=== PATIENT | female | born 1965 | race American Indian/Alaskan Native ===

== ENCOUNTER 2018-05-09 12:34 | Emergency (ER) | payer MEDICAID ==
[2018-05-09 13:00] VITALS: BP 104/66
[2018-05-09] MEDS ORDERED: Oxymetazoline 0.05% Nasal Spray 15 ML Bottle NAS ONE (13:04)
[2018-05-09] MEDS ORDERED: Sodium Chloride 0.9% 10 ML Syringe FLUSH PRN (13:05)
--- NOTE | 2018-05-09 13:09 | EDM.PDOC ---
ED HPI GENERAL MEDICAL PROBLEM - General Chief Complaint: Respiratory Problem Stated Complaint: [facility] Time Seen by Provider: 05/09/18 12:55 Source of Information: Reports: Patient History Limitations: Reports: No Limitations - History of Present Illness INITIAL COMMENTS - FREE TEXT/NARRATIVE: Patient is a 53-year-old female presents ED complaining of shortness of breath, sinus congestion, productive cough. Patient states with awakening this morning she had increased shortness of breath and couldn't catch her breath. She took 2 puffs her of her albuterol inhaler with no significant relief. States she panicked a little bit although the shortness of breath decreased. She called the ambulance and during transport received Versed 2 mg and also two neb treatments. Upon examination patient states the shortness of breath is improving. She's feeling tired. Cough persists. Cough has been present for almost 2 weeks. She has sinus congestion with faint postnasal drip. Their has been no documented fever, recent sick exposure, chest pain, sore throat, hemoptysis, abdominal pain, dysuria, increased weight, or increased edema/ tenderness to the lower extremities. Treatments SALT GRINDER: Reports: Breathing Treatments, Other (see below) Other Treatments SALT GRINDER: versed - Related Data Allergies Allergy/AdvReac Type Severity Reaction Status Date / Time No Known Allergies Allergy Verified 01/08/15 14:14 Home Meds: Home Meds Novalog 24 units BID 05/20/14 [History] metFORMIN [Glucophage XR] 500 mg PO DAILY 05/20/14 [History] atorvaSTATin Calcium [Lipitor] 20 mg PO DAILY 05/09/18 [History] Past Medical History Cardiovascular History: Reports: Hypertension Endocrine/Metabolic History: Reports: Diabetes, Type I Social & Family History - Tobacco Use Smoking Status *Q: Current Every Day Smoker Years of Tobacco use: 30 Packs/Tins Daily: 0.4 - Recreational Drug Use Recreational Drug Use: No ED ROS GENERAL - Review of Systems Review Of Systems: ROS reveals no pertinent complaints other than HPI. ED EXAM, GENERAL - Physical Exam Exam: See Below Exam Limited By: No Limitations General Appearance: Alert, WD/WN, Anxious Eye Exam: Bilateral Eye: Normal Inspection Ears: Hearing Grossly Normal Nose: Normal Inspection, No Blood, Nasal Swelling, Nasal Drainage, Clear Rhinorrhea. No: Nasal Tenderness Throat/Mouth: Normal Inspection, Normal Oropharynx, Normal Voice, No Airway Compromise Head: Atraumatic, Normocephalic Neck: Normal Inspection, Supple, Non-Tender, Full Range of Motion Respiratory/Chest: No Respiratory Distress, Lungs Clear, Normal Breath Sounds, No Accessory Muscle Use, Chest Non-Tender Cardiovascular: Normal Peripheral Pulses, Regular Rate, Rhythm, No Murmur Peripheral Pulses: 2+: Radial (L), Radial (R) GI/Abdominal: Normal Bowel Sounds, Soft, Non-Tender, No Organomegaly, No Distention Back Exam: Normal Inspection Extremities: Normal Inspection, Non-Tender, No Pedal Edema, Normal Capillary Refill Neurological: Alert, Oriented, CN II-XII Intact, Normal Cognition, No Motor/ Sensory Deficits Psychiatric: Normal Affect, Anxious Skin Exam: Warm, Dry, Intact, Normal Color Course - Vital Signs Last Recorded V/S: Last Vital Signs Temp 99.7 F 05/09/18 12:55 Pulse 88 05/09/18 12:55 Resp 20 05/09/18 12:55 BP 104/66 05/09/18 12:55 Pulse Ox 99 05/09/18 12:55 - Orders/Labs/Meds Orders: Active Orders 24 hr Category Date Time Status EKG Documentation Completion [RC] STAT Care 05/09/18 13:03 Active Peripheral IV Care [RC] . DIRECTED Care 05/09/18 13:05 Active CXR [Chest 2V] [CR] Stat Exams 05/09/18 13:03 Taken CULTURE URINE [RM] Stat Lab 05/09/18 14:55 Received Peripheral IV Insertion Adult [OM.PC] Routine Oth 05/09/18 13:05 Ordered Labs: Laboratory Tests 05/09/18 05/09/18 05/09/18 Range/Units 13:40 13:40 14:20 WBC 8.69 (3.98-10.04) K/mm3 RBC 4.18 (3.98-5.22) M/mm3 Hgb 12.7 (11.2-15.7) gm/L Hct 37.9 (34.1-44.9) % MCV 90.7 (79.4-94.8) fl MCH 30.4 (25.6-32.2) pg MCHC 33.5 (32.2-35.5) g/dl RDW Std Deviation 41.8 (36.4-46.3) fL Plt Count 320 (182-369) K/mm3 MPV 9.9 (9.4-12.3) fl Neutrophils % (Manual) 53 (40-60) % Band Neutrophils % 0 (0-10) % Lymphocytes % (Manual) 37 (20-40) % Atypical Lymphs % 0 % Monocytes % (Manual) 7 (2-10) % Eosinophils % (Manual) 3 (0.7-5.8) % Basophils % (Manual) 0 L (0.1-1.2) Platelet Estimate Adequate Plt Morphology Comment Normal Anisocytosis 1+ slight RBC Morph Comment Not Reportable Sodium (136-145) mEq/L Potassium (3.5-5.1) mEq/L Chloride (98-107) mEq/L Carbon Dioxide (21-32) mEq/L Anion Gap (5-15) BUN (7-18) mg/dL Creatinine (0.55-1.02) mg/dL Est Cr Clr Drug Dosing mL/min Estimated GFR (MDRD) (>60) mL/min BUN/Creatinine Ratio (14-18) Glucose (74-106) mg/dL Serum Osmolality 286 (280-300) mosm/kg Calcium (8.5-10.1) mg/dL Total Bilirubin (0.2-1.0) mg/dL AST (15-37) U/L ALT (14-59) U/L Alkaline Phosphatase (46-116) U/L Troponin I (0.00-0.056) ng/mL C-Reactive Protein (<1.0) mg/dL Total Protein (6.4-8.2) g/dl Albumin (3.4-5.0) g/dl Globulin gm/dL Albumin/Globulin Ratio (1-2) Lipase (73-393) U/L Urine Color (Yellow) Urine Appearance (Clear) Urine pH (5.0-8.0) Ur Specific [place] (1.005-1.030) Urine Protein (Negative) Urine Glucose (UA) (Negative) Urine Ketones (Negative) Urine Occult Blood (Negative) Urine Nitrite (Negative) Urine Bilirubin (Negative) Urine Urobilinogen (0.2-1.0) Ur Leukocyte Esterase (Negative) Urine RBC (0-5) /hpf Urine WBC (0-5) /hpf Ur Epithelial Cells (0-5) /hpf Urine Bacteria (FEW) /hpf Urine Mucus (FEW) /hpf Ketones 1.20 (0.0-0.3) mM 05/09/18 05/09/18 05/09/18 Range/Units 14:20 14:20 14:55 WBC (3.98-10.04) K/mm3 RBC (3.98-5.22) M/mm3 Hgb (11.2-15.7) gm/L Hct (34.1-44.9) % MCV (79.4-94.8) fl MCH (25.6-32.2) pg MCHC (32.2-35.5) g/dl RDW Std Deviation (36.4-46.3) fL Plt Count (182-369) K/mm3 MPV (9.4-12.3) fl Neutrophils % (Manual) (40-60) % Band Neutrophils % (0-10) % Lymphocytes % (Manual) (20-40) % Atypical Lymphs % % Monocytes % (Manual) (2-10) % Eosinophils % (Manual) (0.7-5.8) % Basophils % (Manual) (0.1-1.2) Platelet Estimate Plt Morphology Comment Anisocytosis RBC Morph Comment Sodium 136 (136-145) mEq/L Potassium 3.5 (3.5-5.1) mEq/L Chloride 102 (98-107) mEq/L Carbon Dioxide 22 (21-32) mEq/L Anion Gap 15.5 H (5-15) BUN 17 (7-18) mg/dL Creatinine 1.0 (0.55-1.02) mg/dL Est Cr Clr Drug Dosing 67.14 mL/min Estimated GFR (MDRD) 58 (>60) mL/min BUN/Creatinine Ratio 17.0 (14-18) Glucose 214 H (74-106) mg/dL Serum Osmolality (280-300) mosm/kg Calcium 9.4 (8.5-10.1) mg/dL Total Bilirubin 0.6 (0.2-1.0) mg/dL AST 21 (15-37) U/L ALT 23 (14-59) U/L Alkaline Phosphatase 95 (46-116) U/L Troponin I < 0.017 (0.00-0.056) ng/mL C-Reactive Protein 0.5 (<1.0) mg/dL Total Protein 7.4 (6.4-8.2) g/dl Albumin 3.6 (3.4-5.0) g/dl Globulin 3.8 gm/dL Albumin/Globulin Ratio 1.0 (1-2) Lipase 167 (73-393) U/L Urine Color Yellow (Yellow) Urine Appearance Clear (Clear) Urine pH 7.0 (5.0-8.0) Ur Specific [place] 1.015 (1.005-1.030) Urine Protein Negative (Negative) Urine Glucose (UA) Negative (Negative) Urine Ketones 1+ H (Negative) Urine Occult Blood Negative (Negative) Urine Nitrite Negative (Negative) Urine Bilirubin Negative (Negative) Urine Urobilinogen 0.2 (0.2-1.0) Ur Leukocyte Esterase 1+ H (Negative) Urine RBC Not seen (0-5) /hpf Urine WBC 5-10 H (0-5) /hpf Ur Epithelial Cells 0-5 (0-5) /hpf Urine Bacteria Few (FEW) /hpf Urine Mucus Not seen (FEW) /hpf Ketones (0.0-0.3) mM Meds: Medications Discontinued Medications Generic Name Dose Route Start Last Admin Trade Name Freq PRN Reason Stop Dose Admin Lorazepam 1 mg 05/09/18 13:54 05/09/18 14:08 Ativan IVPUSH 05/09/18 13:55 1 mg ONETIME ONE Administration Lorazepam 0.5 mg 05/09/18 14:21 Ativan IVPUSH 05/09/18 14:22 ONETIME ONE Oxymetazoline HCl 1 ml 05/09/18 13:04 05/09/18 13:09 Afrin Original 0.05% Nasal [place] KIMMIE 05/09/18 13:05 1 ml ONETIME ONE Administration Sodium Chloride 10 ml 05/09/18 13:05 05/09/18 13:10 Saline Flush FLUSH 10 ml ASDIRECTED PRN Administration Keep Vein Open - Re-Assessments/Exams Free Text/Narrative Re-Assessment/Exam: IV established. Initial labs and studies will include: CBC, chem 14, CRP, troponin, UA, chest x- ray, and EKG. I also ordered Afrin 1 spray to each naris for the sinus congestion to see if this will help with the sensation of shortness of breath. EKG impression: Sinus rhythm at a rate of [address] changes noted. Chest x-ray impression: Reviewed with Dr. Keller with no acute findings noted. Final impression is pending. 1356 Reassessment, patients vitals are stable. patients is present. She is not tachycardic and or hypoxic. She appears anxious. States has intermittent sob. Hyperventilates at times. With her history of dm and increased breathing rate I have ordered serum osmoality and serum ketones. We do not have current BS. Labs reviewed: CBC and chemistry panel were essentially normal. Troponin normal. CRP 0.5. UA 1+ ketone, leukocyte esterase 1+, urine wbc's 5-10, ketones 12.20. Serum osmolality of 286. Glucose is 214. Patient has no suprapubic abdominal discomfort or symptoms consistent with UTI. I have ordered urine culture. 05/09/18 15:05 Reexamination patient's up walking states she is feeling much better after the initial medications. On reevaluation patient states she has some slight epigastric tenderness. She has a history of pancreatitis in the past with review of previous labs. Denies any diarrhea, blood in her stool. She has not been drinking heavy amounts of alcohol. I ordered a lipase. On initial questioning patient denied any nausea or vomiting. She states she's vomited a few times. Lipase: 167. 05/09/18 15:38 Reassessment, patient resting comfortably vital signs are stable. SPO2 93% on room air. She offers no complaints at this time. She is ready be discharged home. Patient's intermittent shortness of breath most likely related to anxiety. All symptoms have subsided with the administration of Ativan. She was hyperventilating with initial admission to the ED. This has subsided.The patient remained hemodynamically stable while under my care in the E.D. I discussed the concerning symptoms for which to return to the E.D. with the patient/family. The patient/family verbalized understanding. All questions were answered. Departure - Departure Time of Disposition: 15:39 Disposition: Home, Self-Care 01 Condition: Good Clinical Impression: Anxiety attack, Anxiety hyperventilation - Discharge Information Instructions: Generalized Anxiety Disorder, Adult, Living With Anxiety Referrals: PCP,Not In Area [Primary Care Provider] - Forms: ED Department Discharge Additional Instructions: No driving today since receiving a sedative medication. Follow-up with her PCP in the next 3-5 days for reevaluation. Return to the ED if you develop any new or worsening symptoms. Beware increased use of the albuterol inhaler may worsen your anxiety symptoms due to side effects with this medication. In addition UA came back positive for findings concerning for UTI. You have had no voiding symptomatology thus urine culture was obtained. You will be notified if antibiotic is required. - My Orders Last 24 Hours: My Active Orders 05/09/18 13:03 EKG Documentation Completion [RC] STAT CXR [Chest 2V] [CR] Stat 05/09/18 13:05 Peripheral IV Care [RC] . DIRECTED Peripheral IV Insertion Adult [OM.PC] Routine 05/09/18 14:55 CULTURE URINE [RM] Stat - Assessment/Plan Last 24 Hours: My Active Orders 05/09/18 13:03 EKG Documentation Completion [RC] STAT CXR [Chest 2V] [CR] Stat 05/09/18 13:05 Peripheral IV Care [RC] . DIRECTED Peripheral IV Insertion Adult [OM.PC] Routine 05/09/18 14:55 CULTURE URINE [RM] Stat
[2018-05-09] MEDS ORDERED: LORazepam 2 MG/ML SDV IVPUSH ONE ×2 (13:54→14:21)
--- NOTE | 2018-05-10 10:03 | CR ---
Chest: Two views of the chest were obtained. Comparison: Prior chest x-rays not available. Heart size and mediastinum are normal. Lungs are clear. Degenerative spurring noted within the spine. Impression: 1. Nothing acute is seen on two-view chest x-ray. Diagnostic code #1
== END 2018-05-09 15:48 | disposition home or self-care (01) ==
LOC: JD.ED 12:34
DX: F41.0 Panic disorder [episodic paroxysmal anxiety] (principal); R06.4 Hyperventilation; F17.210 Nicotine dependence, cigarettes, uncomplicated; I10 Essential (primary) hypertension; E10.9 Type 1 diabetes mellitus without complications; Z79.899 Other long term (current) drug therapy; Z79.4 Long term (current) use of insulin
CPT/HCPCS: 36415; 71046; 80053; 81001; 82009; 83690; 83930; 84484; 85007; 85027; 86140; 87086; 93005; 96374; 99285; A9270; J2060; J7050